=== PATIENT | female | born 1990 | race Caucasian/White ===

== ENCOUNTER 2017-06-17 16:55 | Inpatient (IN) | payer OTHER ==
[~2017-06-17] VITALS: Ht 170.2 cm; Wt 99.8 kg
[~2017-06-17 16:55] MED LIST: CALC-515 PO; CIPR-326 PO; CYCL10TA29 PO; Docusate Sodium PO; GLYC1TAB21 PO; HYDR-4309 PO; KET10 PO; LACT1CAP6 PO; MULT-885 PO; NORG1TAB2 PO; OXYC5TAB38 PO; PAN40 PO; PER PO; PNV1COMB5
[2017-06-22] MEDS ORDERED: METOCLOPRAMIDE 10 MG/2 ML SDV IVP PRN (19:20)
[2017-06-22] MEDS ORDERED: cefOXitin/DEX(*) 2GM/50ML PREM 50 ML IVPB PRN (19:20)
[2017-06-22] MEDS ORDERED: FAMOTIDINE(*) 20MG/50ML PREMIX 50 ML IVPB PRN (19:20)
[2017-06-22] MEDS ORDERED: TERBUTALINE SULF 1 MG/ML VIAL SUBQ PRN (19:20)
[2017-06-22] MEDS ORDERED: ZOLPIDEM TARTRATE 5 MG TAB PO PRN (19:20)
[2017-06-22] MEDS ORDERED: LIDOCAINE 1% LOCAL 300 MG/30ML INJ PRN ×2 (19:20)
[2017-06-22] MEDS ORDERED: ACETAMINOPHEN 500 MG TAB PO PRN (19:20)
[2017-06-22] MEDS ORDERED: MISOPROSTOL 25 MCG CAP PV PRN (19:20)
[2017-06-22] MEDS ORDERED: OXYTOCIN 30 UNIT/D5LR 500 ML 500 ML IV PRN (19:20)
[2017-06-22] MEDS ORDERED: LIDOCAINE/SOD BICARB 8.4% SYR SC PRN ×2 (19:20)
[2017-06-22] MEDS ORDERED: ONDANSETRON 4 MG/2 ML VIAL IVP PRN (19:20)
[2017-06-22] MEDS ORDERED: DINOPROSTONE 10 MG INSERT PV ONE (19:20)
[2017-06-22] MEDS ORDERED: fentaNYL CITR 100 MCG/2 ML AMP IVP PRN ×2 (19:20)
[2017-06-22 19:50] VITALS: BP 130/80; Ht 170.2 cm; Wt 99.8 kg
[2017-06-22 20:04] LABS: PLATELET COUNT, AUTOMATED 215 K/uL (150-450)
[2017-06-23] VITALS (17 sets, daily range): BP systolic 104–138; BP diastolic 55–77
[2017-06-23] MEDS ORDERED: BUPIVACAINE 0.25% MPF INJ EPI PRN (07:00)
[2017-06-23] MEDS ORDERED: FENTANYL/ROPIVACAINE 100 ML BAG EPI PRN (07:00)
[2017-06-23] MEDS ORDERED: LIDOCAINE/PF 2% 200MG/10ML AMP 200 MG/10 ML AMPUL EPI PRN (07:00)
[2017-06-23] MEDS ORDERED: fentaNYL CITR 100 MCG/2 ML AMP IT PRN (07:00)
[2017-06-23] MEDS ORDERED: BUPIVACAINE 0.5% INJ 30ML VIAL EPI PRN (07:00)
[2017-06-23] MEDS ORDERED: LIDO/EPI 2% MPF 1:200,000 20ML EPI PRN (07:00)
[2017-06-23] MEDS ORDERED: OXYTOCIN 30 UNIT/D5LR 500 ML 500 ML IV PRN ×2 (08:41→20:05)
[2017-06-23] MEDS ORDERED: TERBUTALINE SULF 1 MG/ML VIAL SUBQ PRN (08:45)
[2017-06-23] MEDS ORDERED: EPIDURAL KEYS XX PRN (09:00)
[2017-06-23] MEDS: LR(*) 1000 ML BAG 1,000 ML IV PRN ×4 (09:42→17:10)
--- NOTE | 2017-06-23 12:30 | Procedure Note ---
Anesthetic Placement Note Anesthesia Plan: LEB Permit for Anesthesia Signed: Yes Anesthesia Technique: Patient Sitting Anesthesia Prep: Chlorhexidine Interspace: L 3-4 Local Anesthetic: 1% Lidocaine, 25 Gauge Needle Amount Local - cc's: 2 Anesthesia Needle: 17g Touhy/Schliff Anesthesia Attempts: 1 Loss of Resistance: Normal Saline Depth of LOS (cm): 5 Epidural Needle Placement: No CSF, No Blood, No Parasthesia Catheter Insertion (cm): 5 Catheter Type: Townsend - Spring Wound Epidural Dressing: Tegaderm, Tape, Adhesive Channing Anesthesia Tray: Lot Number ([id number]), Expiration Date (2018-02-01), Reference Number ([id number]) Comment: Patient rating pain 5-6/10. Explained LEB vs CSE. Patient agrees to LEB without intrathecal. Tolerated procedure well. Onset of relief with test dose. Anesthesia Medications: Epidural Test Dose: 1.5 Lido/Epi (1:200,000), Dose - mL (4 ml), Time (1203), Negative Epidural Loading Dose: 0.2% Ropivicaine, Dose - ml (8), Time (1215) Epidural Infusion: 0.2% Ropivicaine, With Fentanyl 2mcg/ml, Start Time: (1215) Epidural Pump Setting: Bolus Dose - mL (4), Lockout - Minutes (20), Maintenance Rate - mL/hr (8), Maximum per Hour - mL (20) Complications: None HERLINDA STEVENSON CRNA Jun 23, 2017 12:30
[2017-06-23] MEDS ORDERED: NS(*) 0.9% 1000 ML BAG 1,000 ML PV PRN (16:37)
[2017-06-23] MEDS ORDERED: fentaNYL CITR 100 MCG/2 ML AMP ONE (18:40)
[2017-06-23] MEDS ORDERED: BUPIVACAINE 0.5% INJ 30ML VIAL ONE (18:40)
--- NOTE | 2017-06-23 18:41 | Anesthesia Progress Note ---
Progress/Maintenance Anesthesia Note Date: Jun 23, 2017 Anesthesia Note Time: 18:35 Pain Intensity: 0 Pump: On Pump Rate (ML/HR): 8 Sensory Level: T-8 Motor Level: Bending Knees-Bilateral Dilatation: 5 Position: Right, Tilt Report Received From: Other Assessment and Plan Assessment: Patient has progressed minimally despite strong contractions. Earlier had some decels but that is resolved. Decision made to proceed with do to failure to progress. Epidural has been functioning well and will use for . HERLINDA STEVENSON CRNA Jun 23, 2017 18:41
[2017-06-23] MEDS ORDERED: OXYTOCIN 10 UNIT/ML SDV ONE (19:11)
[2017-06-23] MEDS ORDERED: MORPHINE PF 5 MG/10 ML AMP ONE (19:14)
[2017-06-23] MEDS ORDERED: DEXAMETHASONE SOD 4 MG/ML VIAL ONE (19:21)
[2017-06-23] MEDS ORDERED: KETOROLAC 30 MG/ML VIAL ONE (19:21)
[2017-06-23] MEDS ORDERED: PHENYLEPHRINE/NS/PF 0.4MG/10ML ONE (19:43)
[2017-06-23] MEDS ORDERED: ONDANSETRON 4 MG/2 ML VIAL IV PRN (20:05)
[2017-06-23] MEDS ORDERED: LANOLIN OINT 7 GM TUBE TP PRN (20:05)
[2017-06-23] MEDS ORDERED: SIMETHICONE 80 MG CHEW CHEW PRN (20:05)
[2017-06-23] MEDS ORDERED: ACETAMINOPHEN 325 MG TAB PO PRN (20:05)
[2017-06-23] MEDS ORDERED: PROMETHAZINE 25 MG/ML 1 ML AMP IVP PRN (20:05)
[2017-06-23] MEDS ORDERED: ZOLPIDEM TARTRATE 5 MG TAB PO PRN (20:05)
--- NOTE | 2017-06-23 20:13 | Post Operative Note ---
Operative Note - [facility] Operative Day Date: Jun 23, 2017 Time: 20:07 Physicians Surgeon: Chuy Anesthesia: SPINAL Diagnosis Pre-Op Diagnosis: 40.5 WEEKS Failure to progress in labor Arrest of descent Post-Op Diagnosis: same Procedure Findings: male, vtx Procedure(s): Primary LTCS Specimen Removed:(Maybe N/A): [id number] Complications: none Fluids Fluids: 1000 ml Estimated Blood Loss: 1000 ml Dictated Date OP Note Dictated: Jun 23, 2017 Time OP Note Dictated: 20:08 Copies to: AMBROCIO COLEMAN MD, TRAVIS MD Jun 23, 2017 20:13
--- NOTE | 2017-06-23 20:17 | History & Physical ---
History of Present Illness Age of Patient: 27 : 1 Para or TPAL: 0 EDC per U/S: Jun 17, 2017 Estimated Gestational Age: 40.5 Chief Complaint IOL History of Present Illness Presents for scheduled IOL at 0 dilation and past her EDC. uncomplicated. There was a concern for an echogenic cardiac focus at her 20 weeks scan but resolved at 31 weeks. Past Medical, Surgical, Family and Obstetric Histories reviewed. Please see ACOG chart. History Allergies: Coded Allergies: amoxicillin (Verified Allergy, Unknown, 11/21/14) clavulanic acid (Verified Allergy, Unknown, 11/21/14) erythromycin base (Verified Allergy, Unknown, 11/21/14) Family History: FH: diabetes mellitus FATHER sibling FH: thyroid condition MOTHER Kidney stone FATHER Uterine fibroid MOTHER Med Rec Home Meds Reported Medications Calcium Carbonate (TUMS) 200 Mg Tab.chew, 200 MG PO, TAB.CHEW 06/05/17 Pnv #116/Iron Fumarate/Fa/Dha (EXPECTA COMBO PACK) 1 Each Combo..pkg 06/05/17 Discontinued Scripts Cyclobenzaprine Hcl (CYCLOBENZAPRINE HCL) 10 Mg Tablet, 10 MG PO TID Y for MUSCLE SPASMS, #15 TAB 0 Refills Prov:KEITH FLOWERS MD 11/21/14 Review of Systems All Systems Reviewed/Normal: Yes, Except as Noted Exam General Exam Vital Signs Vital Signs Date Time Temp Pulse Resp B/P (MAP) Pulse Ox O2 Delivery O2 Flow Rate FiO2 06/22/17 19:50 98.3 91 18 130/80 (97) 94 Room Air General Apperance: Alert/Awake/No Acute Distress Neuro: No Gross deficits Eyes: Normal Extraocular Movement & Vison Cardiovascular: Regular Rate and Rhythm Respiratory: No Respiratory Distress Abdomen: Soft, Non-Tender, Non-Distended, Gravid - Non-Tender Integumentary: Skin Intact without Lesions or Rash Psychological: Alert & Oriented X3, Appropriate Mood & Affect Cervical Dialation: 2 Cervical Effacement (%): 75 Cervical Consistency: Soft Cervical Position: Anterior Station: -2 Presentation: Vertex Fetus FHT Accelerations: 15X15 FHT Category: I Medical Decision Making Data Points Result Diagram: 06/22/171954 VTE Prophylasis: Adult Deep Vein Thrombosis/Pulmonary: No Pharmacological Contraindicati: Pt at Low Risk for VTE Mechanical Contraindications: Pt at Low Risk for VTE Assessment and Plan TEAM MANAGER Plan: Routine Labor/Induct Care Problems: (1) Postmaturity , 40-42 weeks gestation Assessment & Plan: Cervidil placed last night. Expecting Pitocin today and progress into active labor. AMBROCIO COLEMAN MD Jun 23, 2017 20:17
--- NOTE | 2017-06-23 20:24 | Anesthesia OB Pre-Anes Eval ---
History of Present Illness OB Anesthesia Diagnosis: induction - elective Complications: None. 40 6/7 weeks EDC: Jun 17, 2017 : 1 Para: 0 Vital Signs: 119/58 Pain Ratin Result Diagram: 06/22/171954 Height (Inches): 67.00 Weight (Pounds): 220 BMI Calculated: 34.45 Past Medical History Medical History: no pertinent history Surgical History: cholecystectomy, other Previous Anesthesia: general Attended Childbirth Classes?: No Hx Anesthesia Reactions: Yes Hx Family Anesthesia Reaction: Yes (Mom had PDPH after ) Home Meds Reported Medications Calcium Carbonate (TUMS) 200 Mg Tab.chew, 200 MG PO, TAB.CHEW 06/05/17 Pnv #116/Iron Fumarate/Fa/Dha (EXPECTA COMBO PACK) 1 Each Combo..pkg 06/05/17 Discontinued Scripts Cyclobenzaprine Hcl (CYCLOBENZAPRINE HCL) 10 Mg Tablet, 10 MG PO TID Y for MUSCLE SPASMS, #15 TAB 0 Refills Prov:KEITH FLOWERS MD 11/21/14 Allergies: Coded Allergies: amoxicillin (Verified Allergy, Unknown, 11/21/14) clavulanic acid (Verified Allergy, Unknown, 11/21/14) erythromycin base (Verified Allergy, Unknown, 11/21/14) Anesthesia OB ROS Neurological: No migraines/headaches, No seizures, No neuropathy, No other ENT: Denies Tooth caps, Denies Loose teeth, Denies Chipped teeth, Denies Dentures, Denies Bridges, Denies Retainers, Denies Veneers, Denies Implants, Denies Tongue ring, Denies Other Pulmonary: No asthma, No smoker (pks/day/yrs), No other Airway Class: lll Cardiovascular ROS: No edema, No arrhythmia, No other GI ROS: other Last Solids Date: Jun 23, 2017 Last Solids Time: 08:46 ROS: No Herpes, No STD(s), No Liver Disease, No Renal Disease, No Other Endocrine ROS: No diabetes, No gestational diabetes, No thyroid disorder, No other Musculoskeletal ROS: No low back pain, No low back injury, No scoliosis, No other ASA Classification: 2 Assessment and Plan Anesthesia Plan: LEB Anesthesia Stop Day: Jun 23, 2017 Anesthesia Stop Time: 18:50 Epidural Catheter Removal: Yes, Removed by: (Fransico Harrison CRNA) Removal Date: Jun 23, 2017 Removal Time: 20:06 Condition To . Epidural used without problem. See Anesthesia record for OR time. HERLINDA HARRISON CRNA Jun 23, 2017 08:46
[2017-06-23] MEDS: DOCUSATE CALCIUM 240 MG CAP PO SCH (21:00)
[2017-06-23] MEDS: DLR(*) 1000 ML BAG 1,000 ML IV PRN (21:29)
[2017-06-24] VITALS (8 sets, daily range): BP systolic 110–123; BP diastolic 55–71
[2017-06-24] MEDS ORDERED: KETOROLAC 30 MG/ML VIAL IVP SCH
[2017-06-24] MEDS: KETOROLAC 30 MG/ML VIAL IVP SCH ×2 (02:23→08:49)
[2017-06-24] MEDS: DLR(*) 1000 ML BAG 1,000 ML IV PRN ×2 (03:46→11:15)
[2017-06-24 06:12] LABS: PLATELET COUNT, AUTOMATED 182 K/uL (150-450)
--- NOTE | 2017-06-24 07:35 | OPERATIVE REPORT 1 ---
EVENT DATE: June 23, 2017 SURGEON: Asa John MD ANESTHESIOLOGIST: Yanni Harrison CRNA ANESTHESIA: Spinal. PREOPERATIVE DIAGNOSIS 1. 40.5 weeks intrauterine . 2. Failure to progress in labor. 3. Arrest of descent. POSTOPERATIVE DIAGNOSIS 1. 40.5 weeks intrauterine . 2. Failure to progress in labor. 3. Arrest of descent. PROCEDURE PERFORMED Primary low transverse section via Pfannenstiel skin incision. ESTIMATED BLOOD LOSS 1000 mL. FLUIDS 1000 mL IV crystalloid. INDICATIONS The patient was admitted for Cervidil induction at 40.5 weeks and was closed upon admission. She progressed to approximately 4-5 cm dilated with failure to descend beyond a -1 station. Intrauterine pressure monitoring supported excellent uterine contractions throughout this arrest stage. Consent was obtained after thorough discussion of the risks, benefits and alternatives, including further expected management. FINDINGS Male infant, cephalic left occiput posterior position. Apgars 9 and 9. Placenta intact, normal. Normal-appearing uterus, tubes and ovaries. Mild uterine atony responding to Pitocin-infused IV. PROCEDURE IN DETAIL The patient was brought to the operating room with an epidural anesthetic in place and brought to surgical levels. She was placed in the dorsal supine position with a leftward tilt and prepped and draped in usual sterile fashion. Using a knife, a Pfannenstiel skin incision was made, carried through to the underlying rectus fascia. This was nicked in the midline and extended laterally. Rectus muscles were dissected off superiorly and inferiorly and then in the midline. The peritoneum was entered sharply and extended superiorly and inferiorly with sharp and blunt dissection. Bladder blade was inserted. The vesicouterine peritoneum was entered sharply and extended laterally, and bladder flap was created digitally. Bladder blade was reinserted , retracting the bladder away from the operative area, exposing the lower uterine segment. Using the scalpel, low transverse incision on the uterus was made, carried through to the intra-amniotic space. This was put on lateral stretch, extending the incision. A hand was inserted. The 's head in the left occiput posterior position was elevated to the incision. Fundal pressure was applied, and the infant's head delivered atraumatically. The mouth and nose were bulb suctioned. Further fundal pressure affected delivery of the anterior and the posterior shoulder, and the remainder of the followed. Mouth and nose were again bulb suctioned. The cord was clamped, cut , and the infant was passed to the waiting resuscitation team. Cord sample was obtained. The placenta was manually delivered. The uterus was exteriorized and cleared of all clots and debris. Sun clamps were placed for hemostasis while the uterine repair was performed with a #1 Monocryl and a running locking stitch. Second suture of the same type was used to imbricate the first layer, completing a two-layer closure. This was hemostatic upon completion. The posterior cul-de-sac was irrigated and swept clear of clots and debris. The uterus was returned to the abdomen, and bilateral pelvic gutters were irrigated, swept clear of clots and debris. The parietal peritoneum was repaired using a 3-0 Vicryl plus in a running non-locking stitch. Rectus muscles were reapproximated in the midline with the same stitch. Rectus fascia was repaired using an #0-Vicryl in a running non-locking stitch. Subcuticular space was irrigated, swept clear of clots and debris. Capillary bleeders were cauterized. space was closed with 3-0 Vicryl Plus in a running non-locking stitch. Skin was repaired with a 4-0 Monocryl simple subdermal and covered with Dermabond skin adhesive. She tolerated the procedure well. Sponge, lap, needle and instrument counts were all correct x 3. She was taken to recovery in stable condition. EM
[2017-06-24] MEDS: DOCUSATE CALCIUM 240 MG CAP PO SCH ×2 (08:38→21:28)
[2017-06-24] MEDS: FAMOTIDINE 20 MG TAB PO SCH ×2 (08:38→21:28)
--- NOTE | 2017-06-24 08:45 | OB/GYN Progress Note ---
OB Subjective Progress Notes Subjective Doing well. Pain controlled and has not ambulated yet. Rees in place. No nausea OB Objective Physical Exam Vital Signs Date Time Temp Pulse Resp B/P (MAP) Pulse Ox O2 Delivery O2 Flow Rate FiO2 06/24/17 06:00 64 18 95 Room Air 06/24/17 04:00 98.4 112/64 (80) General Appearance: Alert/Awake/No Acute Distress Neurological: No Gross deficits Eyes: Normal Extraocular Movement & Vison Cardiovascular: Normal Rhythm & Peripheral Pulses, Regular Rate and Rhythm Respiratory: No Respiratory Distress, Clear to Auscultation Abdomen: Soft, Non-Tender, Non-Distended Incision: Clean, Dry, Intact, Dermabond Integumentary: Skin Intact without Lesions or Rash Psychological: Alert & Oriented X3, Appropriate Mood & Affect Result Diagram: 06/24/17 0545 Assessment and Plan RENTAL COORDINATOR Plan: Routine Post-Op Care Problems: (1) Postmaturity , 40-42 weeks gestation (2) Status post delivery AMBROCIO COLEMAN MD Jun 24, 2017 08:45
--- NOTE | 2017-06-24 09:12 | Anesthesia Post Eval Note ---
Anesthesia Post Eval Note Pt able to participate in Eval: Yes Cardiovascular Status: Satisfactory Respiratory Status: Satisfactory Pain Managment: Satisfactory PO Nausea/Vomiting: Satisfactory Temperature Management: Satisfactory Mental Status: Satisfactory, Alert, Oriented X3 Post-Op Hydration Status: Satisfactory, Tolerating PO Well, Voiding w/o Difficulty Anesthesia Type: LEB Anesthesia Tolerance: Pain well-controlled. Reports itching but tolerable. Has been up ambulating. HERLINDA STEVENSON CRNA Jun 24, 2017 09:11
[2017-06-24] MEDS: IBUPROFEN 800 MG TAB PO SCH ×2 (15:37→21:27)
[2017-06-25 03:45] VITALS: BP 121/71
[2017-06-25] MEDS: IBUPROFEN 800 MG TAB PO SCH ×2 (06:00→06:17)
[2017-06-25 08:20] VITALS: BP 122/66
[2017-06-25] MEDS ORDERED: IBUP800T37 PO (08:49)
[2017-06-25] MEDS ORDERED: PER PO (08:49)
--- NOTE | 2017-06-25 08:51 | OB/GYN Discharge Summary ---
Discharge Summary Reason for Hosp/Final Diag: (1) Postmaturity , 40-42 weeks gestation (2) Status post delivery Hospital Course & Plan: Presented for a scheduled IOL. Only progressed to 4 cm. Underwent delivery with out any complications (see delivery/ operative note) for details. Pt remained in the hospital for 3 days post . Lates Vital Signs Vital Signs Date Time Temp Pulse Resp B/P (MAP) Pulse Ox O2 Delivery O2 Flow Rate FiO2 06/25/17 03:45 98.2 78 16 121/71 (88) 96 Room Air Weight (Pounds): 220 Result Diagram: 06/24/17 0545 Condition: Improved Discharge: Home Home Meds Active Scripts Ibuprofen (IBUPROFEN) 800 Mg Tablet, 800 MG PO Q8H@0600,1400,2200, #30 TAB 0 Refills Prov:SADAF DE LEON DO 06/25/17 Oxycodone/Acetaminophen (OXYCODONE/ACETAMINOPHEN 5MG/325 MG) 5 Mg/325 Mg Tab, 1- 2 TAB PO Q4H Y for PAIN, #40 TAB 0 Refills Prov:SADAF DE LEON DO 06/25/17 Reported Medications Calcium Carbonate (TUMS) 200 Mg Tab.chew, 200 MG PO, TAB.CHEW 06/05/17 Pnv #116/Iron Fumarate/Fa/Dha (EXPECTA COMBO PACK) 1 Each Combo..pkg 06/05/17 Discontinued Scripts Cyclobenzaprine Hcl (CYCLOBENZAPRINE HCL) 10 Mg Tablet, 10 MG PO TID Y for MUSCLE SPASMS, #15 TAB 0 Refills Prov:KEITH FLOWERS MD 11/21/14 [facility] [phone], Dr. John [phone] Follow up in: 6 wks PP or PO, 2 wks PO Discharge Diet: As Tolerates Discharge Activity: As Tolerates, Pelvic Rest SADAF DE LEON DO Jun 25, 2017 08:51
[2017-06-25] MEDS: DOCUSATE CALCIUM 240 MG CAP PO SCH (09:00)
[2017-06-25] MEDS: FAMOTIDINE 20 MG TAB PO SCH (09:00)
--- NOTE | 2017-06-25 09:32 | OB/GYN Progress Note ---
OB Subjective Progress Notes Subjective Doing good POD # 2. Reports pain controlled with PO pain medications. Tolerating regular diet. Ambulatory. Voiding with out any difficulty. Pt desires to be discharged home if possible. GI: NEG Nausea, NEG Vomiting, NEG Flatus, NEG Bowel Movement : Voiding Well, Vaginal Bleeding Pain: Mild, Tolerating PO Pain Meds Neurological: No Headache, No Other Eyes: No Visual Disturbances OB Objective Physical Exam Vital Signs Date Time Temp Pulse Resp B/P (MAP) Pulse Ox O2 Delivery O2 Flow Rate FiO2 06/25/17 03:45 98.2 78 16 121/71 (88) 96 Room Air General Appearance: Alert/Awake/No Acute Distress Neurological: No Gross deficits Eyes: Normal Extraocular Movement & Vison Cardiovascular: Normal Rhythm & Peripheral Pulses, Regular Rate and Rhythm Respiratory: No Respiratory Distress, Clear to Auscultation Abdomen: Soft, Non-Tender, Non-Distended Incision: Clean, Dry, Intact, Dermabond Integumentary: Skin Intact without Lesions or Rash Psychological: Alert & Oriented X3, Appropriate Mood & Affect Result Diagram: 06/24/17 0545 Assessment and Plan MILK VENDOR Assessment: Stable Problems: (1) Postmaturity , 40-42 weeks gestation (2) Status post delivery Assessment & Plan: Plan to discharge home with baby. SADAF DE LEON DO Jun 25, 2017 09:32
[2017-06-25 11:55] VITALS: BP 119/71
[2017-06-25] MEDS ORDERED: IBUPROFEN 800 MG TAB PO SCH (14:00)
[2017-06-25 16:00] VITALS: BP 116/81
[2017-06-25] MEDS ORDERED: DIPHTH/TETANUS/ACEL. PERTUSSIS IM ONLY ONE (20:05)
[2017-06-25] MEDS ORDERED: INFLUENZA VIRUS VAC 0.5 ML SYR IM ONLY ONE (20:05)
[2017-06-25] MEDS ORDERED: MEASLES,MUMP,RUBELLA VAC 0.5ML SUBQ ONE (20:05)
== END 2017-06-25 19:20 | disposition home or self-care (01) | DRG 766 ==
LOC: OB 06-22 19:16
PROVIDERS: ADMIT Obstetrics & Gynecology; ATTEND Obstetrics & Gynecology
PROC: 3E0P7VZ Introduction of Hormone into Female Reproductive, Via Natural or Artificial Opening (ICD-10-PCS; 2017-06-22)
PROC: 10H07YZ Insertion of Other Device into Products of Conception, Via Natural or Artificial Opening (ICD-10-PCS; 2017-06-23)
PROC: 4A1H74Z Monitoring of Products of Conception, Cardiac Electrical Activity, Via Natural or Artificial Opening (ICD-10-PCS; 2017-06-23)
PROC: 10D00Z1 Extraction of Products of Conception, Low, Open Approach (ICD-10-PCS; principal; 2017-06-23 19:03)
DX: O62.1 Secondary uterine inertia (principal); O62.2 Other uterine inertia; Z3A.40 40 weeks gestation of pregnancy; Z37.0 Single live birth; Z90.49 Acquired absence of other specified parts of digestive tract; Z88.0 Allergy status to penicillin; Z88.1 Allergy status to other antibiotic agents; Z88.8 Allergy status to other drugs, medicaments and biological substances
CPT/HCPCS: 36415; 85025; 86850; 86900; 86901; J0694; J1100; J1885; J2270; J2370; J2590; J3010; J3490; J7120